=== PATIENT | female | born 2000 | race Caucasian/White ===

== ENCOUNTER 2022-12-08 19:06 | Emergency (ER) | payer OTHER, SELFPAY ==
[2022-12-08 19:18] VITALS: BP 137/83; PULSE 95; RESP 16; TEMP 37.2; O2SAT 99
--- NOTE | 2022-12-08 19:25 | ED.URI ---
HPI - URI/Sore Throat General Chief Complaint: Upper Respiratory Infection Stated Complaint: Sinus Time Seen by Provider: 12/08/22 19:25 Source: patient Mode of arrival: ambulatory Limitations: no limitations History of Present Illness HPI Narrative: Susan is a 22-year-old female patient presenting to the clinic today with complaints of sinus congestion, sore throat, and cough x8 days. She reports no known fever or chills. No known exposure to anyone with COVID, flu, or strep. MD elicited complaint: cough, sore throat and nasal congestion Related Data Allergies Allergy/AdvReac Type Severity Reaction Status Date / Time No Known Allergies Allergy Verified 12/08/22 19:18 Review of Systems Review of Systems: Pertinent positives per HPI. Patient denies any fever, chills, rash, headache, visual changes, dizziness, shortness of breath, chest pain, palpitations, nausea, vomiting, diarrhea, constipation, abdominal pain, or any urinary issues. PMFSH Comments At the time of my signature, I reviewed and agree with the nursing past medical, surgical, social, and family history. There is no relevant family history pertinent to the patient complaint. Exam Narrative: General: Well-developed, morbidly obese, in no apparent distress Head: Normocephalic, atraumatic Eyes: Pupils equally round and reactive to light bilaterally, EOM intact, sclera and conjunctive clear, no discharge, lids normal Ears: TMs intact and clear, ear canals clear, no drainage, grossly hearing normal. Nose: Nares patent, clear nasal discharge, moderate inflammation, no sinus tenderness. Mouth: Oral pharynx red with bilateral tonsillar enlargement with white exudate to the tonsils without lesions or masses, good dentition, MMM. Neck: Supple, trachea midline, enlargement of anterior cervical nodes, no thyroid masses or goiter palpable. Cardio: Regular rate and rhythm, s1 and s2 normal, no murmur appreciated. Resp: Clear to auscultation bilaterally, no rhonchi, rales, wheezing or rubs Course Course Emergency Course: Portions of this record may have been created with voice recognition software. Level of Care: Express Care Visit Vital Signs Vital signs: Vital Signs Temperature 37.2 C 12/08/22 19:18 Pulse Rate 95 12/08/22 19:18 Respiratory Rate 16 12/08/22 19:18 Blood Pressure 137/83 12/08/22 19:18 Pulse Oximetry 99 12/08/22 19:18 Oxygen Delivery Room Air 12/08/22 19:18 Temperature 37.2 C 12/08/22 19:18 Pulse Rate 95 12/08/22 19:18 Respiratory Rate 16 12/08/22 19:18 Blood Pressure 137/83 12/08/22 19:18 Pulse Oximetry 99 12/08/22 19:18 Oxygen Delivery Room Air 12/08/22 19:18 Vital signs reviewed MDM - URI/Sore Throat MDM Narrative Medical decision making narrative: At the time of visit patient is resting comfortably on exam table. Strep and mono testing was negative. Centor criteria is 3/4. I suspect patient has URI with exudate pharyngitis. Will send prescription for amoxicillin and prednisone was sent to the pharmacy. Supportive measures were discussed with the patient she voiced understanding discharge instructions and agrees to treatment plan. Differential Diagnosis Differential diagnosis: Likely upper respiratory infection, otitis media, sinusitis, viral infection, bronchitis, influenza, pharyngitis and other Discharge Plan Discharge Clinical Impression: Exudative pharyngitis Upper respiratory infection Qualifiers: URI type: unspecified URI Qualified Code(s): J06.9 - Acute upper respiratory infection, unspecified Patient Disposition: Home, Self-Care Condition: Stable Instructions: Antibiotic Form, Pharyngitis (ED), Upper Respiratory Infection (ED) Additional Instructions: Strep test was negative in the clinic today and mono test was negative. Take prescription medications only as prescribed-prednisone and amoxicillin Increase fluids and stay well hydrated Tylenol/motri
[2022-12-08 19:27] VITALS: BP 137/83; PULSE 95; RESP 16; TEMP 37.2; O2SAT 99
== END 2022-12-08 20:08 | disposition home or self-care (01) ==
PROVIDERS: Emergency Provider Nurse Practitioner Family
DX: J02.9 Acute pharyngitis, unspecified (principal); J06.9 Acute upper respiratory infection, unspecified
CPT/HCPCS: 36416; 86308; 87081; 87880; 99203; G0463

== ENCOUNTER 2023-01-21 11:14 | Emergency (ER) | payer OTHER, SELFPAY ==
[2023-01-21 11:27] VITALS: BP 128/71; PULSE 110; RESP 18; TEMP 37.4; O2SAT 100
--- NOTE | 2023-01-21 11:39 | ED.URI ---
HPI - URI/Sore Throat General Chief Complaint: Upper Respiratory Infection Stated Complaint: Vomiting/Diarrhea Time Seen by Provider: 01/21/23 11:40 Source: patient and RN notes reviewed Mode of arrival: ambulatory Limitations: no limitations History of Present Illness HPI Narrative: 22 year old female presents with concern for nausea, vomiting, diarrhea that started overnight. She reports she last vomited and had diarrhea in the waiting room. Reports she is having trouble keeping fluids down. She reports chills. She denies nasal congestion, rhinorrhea, sore throat, cough. MD elicited complaint: other (Nausea, vomiting, chills) Related Data Home Medications Medication Instructions Recorded Confirmed famotidine 20 mg tablet 40 mg PO DAILY 01/21/23 01/21/23 fluoxetine 20 mg capsule 20 mg PO DAILY 01/21/23 01/21/23 Allergies Allergy/AdvReac Type Severity Reaction Status Date / Time No Known Allergies Allergy Verified 01/21/23 11:20 Review of Systems Review of Systems: CONSTITUTIONAL: Denies malaise, chills, sweats, or fever. EYES: Denies visual changes, redness, or discharge. ENT: Denies rhinorrhea, congestion, sinus pain, otalgia and sore throat. CARDIOVASCULAR: Denies chest pain, palpitations, or edema. RESPIRATORY: Reports cough. Denies dyspnea. GASTROINTESTINAL: Denies abdominal pain, reports abdominal cramping, nausea, vomiting, diarrhea SKIN: Denies rash or itching. MUSCULOSKELETAL: Denies myalgia. NEUROLOGIC: Denies headache. All systems reviewed & are unremarkable except as noted in HPI and below PMFSH Comments At time of signature, agree with nursing past medical, surgical, social and family history. There is no relevant family history pertinent to the presenting complaint Exam Narrative: GENERAL: Well-appearing, well-nourished, and in no acute distress. HEAD: Normocephalic EYES: PERRLA, conjunctivae clear ENT: Nares clear. Mucous membranes moist. TM pearly gunn with sharp light reflex bilaterally; no tragal tenderness. Oropharynx not erythematous without lesions. Tonsils not enlarged and without exudate, no drooling, no hoarseness, no trismus, uvula midline. NECK: Supple. No lymphadenopathy CHEST: Clear to auscultation, breath sounds equal. No wheezing, rhonchi, rales, or stridor. No respiratory distress, speaks in full sentences. ABD: Normal bowel sounds, no abdominal tenderness HEART: Regular rate and rhythm. No murmur heard. SKIN: Warm, dry, no rash. NEURO: Alert and oriented x3. PSYCH: Normal mood and affect Course Course Emergency Course: Patient is aware of diagnosis, understands and agrees to treatment plan. Anticipatory guidance given. Patient agrees to follow-up as directed and is aware of reasons to seek care at the emergency department. Portions of this record may have been created with voice recognition software Level of Care: Express Care Visit Vital Signs Vital signs: Vital Signs Temperature 99.3 F 01/21/23 11:27 Pulse Rate 110 H 01/21/23 11:27 Respiratory Rate 18 01/21/23 11:27 Blood Pressure 128/71 01/21/23 11:27 Pulse Oximetry 100 01/21/23 11:27 Oxygen Delivery Room Air 01/21/23 11:27 Temperature 99.3 F 01/21/23 11:27 Pulse Rate 110 H 01/21/23 11:27 Respiratory Rate 18 01/21/23 11:27 Blood Pressure 128/71 01/21/23 11:27 Pulse Oximetry 100 01/21/23 11:27 Oxygen Delivery Room Air 01/21/23 11:27 Reviewed. MDM - URI/Sore Throat MDM Narrative Medical decision making narrative: Differential diagnosis considered: Ybarra virus, strep pharyngitis, allergic rhinitis, upper respiratory tract infection, sinusitis, rhinosinusitis, nasopharyngitis. viral pharyngitis, otitis media, otitis externa, pneumonia, bronchitis, viral cough syndrome, viral syndrome, and influenza. Exam findings show no acute concerns or changes; patient is non-toxic appearing and is in no distress. Patient is appropriate for outpatient treatment and follow-
== END 2023-01-21 11:58 | disposition home or self-care (01) ==
PROVIDERS: Emergency Provider Nurse Practitioner; PCP Physician Assistant
DX: J10.1 Influenza due to other identified influenza virus with other respiratory manifestations (principal)
CPT/HCPCS: 87804; 99213; G0463

== ENCOUNTER 2023-08-26 08:09 | Emergency (ER) | payer OTHER, SELFPAY ==
[2023-08-26 08:17] VITALS: BP 112/84; PULSE 99; RESP 16; TEMP 37.1; O2SAT 98
[2023-08-26 08:18] VITALS: BP 112/84; PULSE 99; RESP 16; TEMP 37.1; O2SAT 98
--- NOTE | 2023-08-26 08:30 | ED.URI ---
HPI - URI/Sore Throat General Chief Complaint: Upper Respiratory Infection Stated Complaint: Congestion,Sore Throat Time Seen by Provider: 08/26/23 08:25 Source: patient and RN notes reviewed Mode of arrival: ambulatory Limitations: no limitations History of Present Illness HPI Narrative: Patient presents today with a 3 day history of sore throat in 2 day history of congestion and postnasal drip. Denies fever or cough. Currently rates her pain 6/10 and has been taking Advil and Tylenol with some mild relief. Pain increases with swallowing. 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 Related Data Home Medications Medication Instructions Recorded Confirmed etonogestrel 68 mg subdermal 1 implant subdermal ONCE 08/26/23 08/26/23 implant (Nexplanon) Allergies Allergy/AdvReac Type Severity Reaction Status Date / Time No Known Allergies Allergy Verified 01/21/23 11:20 Review of Systems Review of Systems: CONSTITUTIONAL: Denies body aches, fever, chills, or sweats. EYES: Denies visual changes, redness, or discharge. ENT: Denies rhinorrhea, or otalgia.+ sore throat, congestion, postnasal drip CARDIOVASCULAR: Denies chest pain, palpitations, or edema. RESPIRATORY: Denies cough or dyspnea. GASTROINTESTINAL: Denies abdominal pain, nausea, vomiting, or diarrhea. GENITOURINARY: Denies dysuria or hematuria. SKIN: Denies rash, itching, or wounds. MUSCULOSKELETAL: Denies back pain, joint pain, or myalgia. NEUROLOGIC: Denies headache, numbness, tingling, or weakness. PSYCH: Denies depression or anxiety. PMFSH Comments At time of signature, I have reviewed and agree with nursing past medical, surgical, social and family history unless otherwise noted. Please see nursing chart for further information. There is no relevant family history pertinent to the presenting complaint Exam Narrative: GENERAL: Well-appearing, well-nourished, and in no acute distress. HEAD: Normocephalic, atraumatic. EYES: EOMI. No redness or drainage. Conjunctivae normal. ENT: Mucous membranes pink and moist. Nares clear. No rhinorrhea. TMs normal bilaterally. Throat erythematous and mildly edematous. Tonsils 3+ without exudate. Uvula midline. NECK: Normal AROM. Supple. Bilateral anterior and posterior cervical chain lymphadenopathy CHEST: No respiratory distress. Clear to auscultation. HEART: Regular rate and rhythm. No murmur appreciated. EXTREMITIES: Normal range of motion. No edema. SKIN: Warm, dry, no rash. Capillary refill normal. Normal skin turgor. NEURO: No focal deficits. Alert and oriented x3. Gait steady. PSYCH: Normal affect. No signs of depression or anxiety. Course Course Level of Care: Express Care Visit Vital Signs Vital signs: Vital Signs Temperature 98.8 F 08/26/23 08:17 Pulse Rate 99 08/26/23 08:17 Respiratory Rate 16 08/26/23 08:17 Blood Pressure 112/84 08/26/23 08:17 Pulse Oximetry 98 08/26/23 08:17 Oxygen Delivery Room Air 08/26/23 08:17 Temperature 98.8 F 08/26/23 08:18 Pulse Rate 99 08/26/23 08:18 Respiratory Rate 16 08/26/23 08:18 Blood Pressure 112/84 08/26/23 08:18 Pulse Oximetry 98 08/26/23 08:18 Oxygen Delivery Room Air 08/26/23 08:18 Reviewed MDM - URI/Sore Throat MDM Narrative Medical decision making narrative: Rapid strep negative. Culture pending. Symptoms likely viral in etiology. Discussed [id number] medication use and duration of illness. No prescription medications indicated at this time. Anticipatory guidance given. Differential Diagnosis Differential diagnosis: Likely upper respiratory infection, viral infection, pharyngitis and other (Strep throat) Lab Data Attestation: I reviewed the patient's lab results. Lab results narrative: Rapid strep negative Critical Care Time Critical Care Time Critical Care Time: No Discharge Plan Discharge Clinical Impression: Upper respiratory infection Qualifiers: URI t
== END 2023-08-26 08:53 | disposition home or self-care (01) ==
PROVIDERS: Emergency Provider Nurse Practitioner; PCP Physician Assistant
DX: J06.9 Acute upper respiratory infection, unspecified (principal); K21.9 Gastro-esophageal reflux disease without esophagitis
CPT/HCPCS: 87081; 87880; 99213; G0463